=== PATIENT | male | born 2000 | race Two or more races ===

== ENCOUNTER 2024-07-09 11:30 | Outpatient (RCR) | payer MEDICAID, SELFPAY ==
--- NOTE | 2024-06-29 13:50 | PT.OIERPT ---
PT OP Initial Eval Patient Information Outpatient Physical Therapy Treatment Date: 06/29/24 Visit Reasons: RT side sciatica Medical Diagnosis: M54.41 Treatment Dx #1: Back Pain Treatment Dx #2: Hip Pain Start of Care: 06/29/24 Date of Onset: 3 months ago Smoking Status Smoking Status: Never smoker Initial Assessment Subjective: Pt is a 24 y/o male reports of back and bilateral hip pain started ~ 3 months ago. Pt was working on progressing the split maneuver. Pt also [place] as a [employer] [place] Pt notice intermittent pain down the legs R>L. No imaging has been done thus far. Pt has limitation with recreational activities, working out, standing, walking, chores, and lifting. Objective: L/S AROM: all motions are WFL except end range pain into flexion and left rotation Hip PROM: all motions are WFL except IR Hip MMTs: grossly 3+/5 Palpation: TTP and hypomobile L4 facets: increase paraspinal tone L3-L5 regions Special Test (+) Alvino test (+) magaña (+) GURDEEP's Muscle Length: Tight Hs Assessment: Pt demonstrate back pain with hip mobility deficits leading to difficulty with ADLs. 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 Short Term and Penitentiary Goals 1) Increase L/S AROM WNL in 6 wks to be able to perform recreational activities 2) Increase hip mobility WFL in 6 wks to be able to resume work out routine 3) Decrease back pain to 2/10 in 6 wks to be able to walk more than 30 mins 4) Increase core strength WFL in 6 wks to be able to perform lifting activities 5) Indep with HEP Treatment Plan 1) Manual Therapy 2) Therapeutic Activities 3) Therapeutic Exercises 4) Modalities (ice, heat, traction) Frequency and Duration: 2 x wk for 6 wks Certification Dates: 06/29/24 to 09/29/24 Procedure Charges OP PT Eval Mod Complex 30 minutes: Yes
--- NOTE | 2024-07-09 13:05 | PT.ODAYNRPT ---
PT Outpatient Daily Note OP Daily Note Outpatient Physical Therapy Treatment Date: 07/09/24 Visit Reasons: RT side sciatica Subjective: Pt reports LBP and pain in hip flexors sometimes. Objective: Please see flow sheet for ther ex list. Assessment: Pt tolerated interventions with no complaints. Plan: Assess response for treatment, request additional auth. Length of Time (minutes) of Treatment: 30 Minutes Procedure Charges Therapeutic Exercise 30 minutes: Yes
== END 2024-07-27 23:59 | disposition home or self-care (01) ==
LOC: CPTX 11:30
PROVIDERS: PCP Nurse Practitioner Family; Referring Provider Nurse Practitioner Family; Visit Provider Nurse Practitioner Family
DX: M54.41 Lumbago with sciatica, right side (principal); M25.552 Pain in left hip; M25.551 Pain in right hip
CPT/HCPCS: 97110; 97162

== ENCOUNTER 2024-08-21 10:00 | Outpatient (RCR) | payer MEDICAID, SELFPAY ==
--- NOTE | 2024-08-07 10:52 | PT.ODAYNRPT ---
PT Outpatient Daily Note OP Daily Note Outpatient Physical Therapy Treatment Date: 08/07/24 Visit Reasons: Right side Sciatica Subjective: Pt's back is okay. Pt has not experience leg pain lately. Pt still notice his right lower back feeling stiff with rotational movement Objective: Please see flow chart for list of ther ex performed Assessment: taught Hs and hip flexor stretches today to keep hip mobile to decrease compensatory movement in the lower back during work out routine. Pt was given HEP and performed all exercises correctly and safely Plan: Continue with PT Length of Time (minutes) of Treatment: 30 Minutes Procedure Charges Therapeutic Exercise 30 minutes: Yes
--- NOTE | 2024-08-14 12:57 | PT.ODAYNRPT ---
PT Outpatient Daily Note OP Daily Note Outpatient Physical Therapy Treatment Date: 08/14/24 Visit Reasons: Right side Sciatica Subjective: Pt's back feels better. Pt notice hip flexors tightness. Objective: Please see flow chart for list of ther ex performed Assessment: add more core strengthening exercises today. Pt was given HEP and showed hip flexor stretch to continue as part of his work out routine. Pt gave verbal understanding and will continue hip flexor stretching at home. Plan: Continue with PT Length of Time (minutes) of Treatment: 30 Minutes Procedure Charges Therapeutic Exercise 30 minutes: Yes
--- NOTE | 2024-08-18 15:11 | PT.ODAYNRPT ---
PT Outpatient Daily Note OP Daily Note Outpatient Physical Therapy Treatment Date: 08/18/24 Visit Reasons: Right side Sciatica Subjective: Pt reports back is doing better but still has pain on B lateral hip especially when doing a lateral high kick. Objective: Please see flow sheet for ther ex list. Assessment: Pt instructed on hip flexor stretch encouraged to perform for HEP. Plan: Continue with poC.
--- NOTE | 2024-08-21 10:23 | PT.ODAYNRPT ---
PT Outpatient Daily Note OP Daily Note Outpatient Physical Therapy Treatment Date: 08/21/24 Visit Reasons: Right side Sciatica Subjective: Pt mentioned side kicks causing pain. Pt's hip feels tight and back is painful after a few kicks. Objective: Please see flow chart for list of ther ex performed Assessment: instructed patient on glute stretching to help with external rotation and hip flexion during side kick . Pt performed correctly and advised to incorporate as HEP and routine stretching Plan: Continue with PT Length of Time (minutes) of Treatment: 30 Minutes Procedure Charges Therapeutic Exercise 30 minutes: Yes
== END 2024-08-26 23:59 | disposition home or self-care (01) ==
LOC: CPTX 10:00
PROVIDERS: PCP Nurse Practitioner Family; Referring Provider Nurse Practitioner Family; Visit Provider Nurse Practitioner Family
DX: M54.41 Lumbago with sciatica, right side (principal)
CPT/HCPCS: 97110

== ENCOUNTER 2024-09-17 11:30 | Outpatient (RCR) | payer MEDICAID, SELFPAY ==
--- NOTE | 2024-08-28 12:01 | PT.ODAYNRPT ---
PT Outpatient Daily Note OP Daily Note Outpatient Physical Therapy Treatment Date: 08/28/24 Visit Reasons: Right side Sciatica Subjective: Pt's back is better. Pt continues to have right hip pain with sidekicks. Pt is stretching at home which is minimally improving the pain. Objective: Please see flow chart for list of ther ex performed Assessment: instructed patient with IT band stretching and TFL foam roll which did not change much of the right hip. Plan: Continue with PT Length of Time (minutes) of Treatment: 30 Minutes Procedure Charges Therapeutic Exercise 30 minutes: Yes
--- NOTE | 2024-09-01 12:03 | PT.ODAYNRPT ---
PT Outpatient Daily Note OP Daily Note Outpatient Physical Therapy Treatment Date: 09/01/24 Visit Reasons: Right side Sciatica Subjective: Pt's hip feels a little better after last session. Pt feels that foam roll helps. Objective: Please see flow chart for list of ther ex performed Assessment: work on hip disassociation during squatting exercise. After a few reps Pt demonstrate improve form with less lumbar flexion Plan: Continue with PT Length of Time (minutes) of Treatment: 30 Minutes Procedure Charges Therapeutic Exercise 30 minutes: Yes
--- NOTE | 2024-09-04 14:24 | PTNOTE_ITS ---
PT Outpatient Daily Note OP Daily Note Outpatient Physical Therapy Treatment Date: 09/04/24 Visit Reasons: Right side Sciatica Subjective: Pt's back punch a little but overall feeling much better. 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 Worked on bird/dog exercise; patient still has difficulty stabilizing core and hip with exercise modified to quadruped with hip extension. Pt instructed to practice modified/bird dog at home. Plan: Continue with PT Length of Time (minutes) of Treatment: 30 Minutes Procedure Charges Therapeutic Exercise 30 minutes: Yes
--- NOTE | 2024-09-09 11:34 | PT.ODAYNRPT ---
PT Outpatient Daily Note OP Daily Note Outpatient Physical Therapy Treatment Date: 09/09/24 Visit Reasons: Right side Sciatica Subjective: Pt reports hip and back are feeling better, has some pain with certain movements but mild. Objective: Please see flow sheet for ther ex list. Assessment: Progressing interventions as tolerated. Pt demonstrates lateral trunk rotation with lateral plank exercise but corrects post verbal cues. Plan: Continue with POC. Length of Time (minutes) of Treatment: 30 Minutes Procedure Charges Therapeutic Exercise 30 minutes: Yes
--- NOTE | 2024-09-11 09:29 | PT.ODAYNRPT ---
PT Outpatient Daily Note OP Daily Note Outpatient Physical Therapy Treatment Date: 09/11/24 Visit Reasons: Right side Sciatica Subjective: Pt's back is better. No concerns and wants to work on core strength Objective: Please see flow chart for list of ther ex performed Assessment: frequent cues to correct right trunk rotation with bird dog exercise. Added more core strengthening exercises with good tolerance Plan: Continue with PT Length of Time (minutes) of Treatment: 30 Minutes Procedure Charges Therapeutic Exercise 30 minutes: Yes
--- NOTE | 2024-09-17 14:26 | PT.ODS1RPT ---
PT OP Progress/Discharge Note Date of Service: 09/17/24 Progress Note/DC Note Progress Note/Discharge Note: DC Note Patient Information Visit Reasons: Right side Sciatica Medical Diagnosis: M54.41 Treatment Dx #1: Back Pain Service Continue Service or Discharge: Discharge Discharge Date: 09/17/24 Status Subjective: Pt's back is better and does not have much to report. Pt has been able to resume work out, chores, walk, and ADLs with minimal limitation. At this time Pt feels comfortable being release from care with exercises to continue at home. Objective: L/S AROM: all motions are WNL Hip PROM: all motions WNL Hip MMTs: grossly 4-/5 Assessment: Pt demonstrate functional spinal mobility and strength allowing him to resume ADLs with minimal limitation. Pt will no longer benefit from physical therapy due to meeting all set goals. Pt was instructed on HEP last session and educated to continue exercises to maintain overall mobility. Pt performed all exercises safely, thank you for your referrals. Plan: D/C home with HEP and follow up with MD FERMIN Procedure Charges Therapeutic Exercise 30 minutes: Yes
== END 2024-09-26 23:59 | disposition home or self-care (01) ==
LOC: CPTX 11:30
PROVIDERS: PCP Nurse Practitioner Family; Referring Provider Nurse Practitioner Family; Visit Provider Nurse Practitioner Family
DX: M54.41 Lumbago with sciatica, right side (principal); M25.552 Pain in left hip; M25.551 Pain in right hip
CPT/HCPCS: 97110

== ENCOUNTER 2024-12-25 14:00 | Outpatient (RCR) | payer MEDICAID, SELFPAY ==
--- NOTE | 2024-12-02 15:58 | PTNOTE_ITS ---
PT OP Initial Eval Patient Information Outpatient Physical Therapy Treatment Date: 12/02/24 Visit Reasons: Right shoulder pain Medical Diagnosis: M89.8x1 Treatment Dx #1: Right Shoulder Pain Start of Care: 12/02/24 Date of Onset: 1 year ago Smoking Status Smoking Status: Never smoker Initial Assessment Subjective: Pt is a 24 y/o male reports of chronic right shoulder pain (3/10) near the middle of the clavicle. Pt denies of injury or trauma to the shoulder. Pt has limitation with training, lifting, working out, bringing the arm across the body, and performing recreational activities. Objective: Right Shoulder AROM: all motions are WNL Right Shoulder MMTs: grossly 4-/5 Right Scapula MMTs: grossly 4-/5 Assessment: Pt demonstrate functional right shoulder AROM, however, exhibit decrease strength compared to opposite side. Pt will benefit from physical therapy to increase right shoulder stability and strength. Short Term and Skilled Nursing Goals 1) Decrease shoulder pain to 1/10 in 6 wks to be able to perform lifting activities 2) Increase right shoulder MMTs grossly to 4+/5 in 6 wks to be able to resume work out activities 3) Increase right scapula MMTs grossly to 4/5 in 6 wks to be able to perform recreational activities 4) Indep with HEP Treatment Plan 1) Manual Therapy 2) Therapeutic Activities 3) Therapeutic Exercises 4) Modalities (ice, heat) Frequency and Duration: 2 x wk for 6 wks Certification Dates: 12/02/24 to 03/04/25 Procedure Charges OP PT Eval Mod Complex 30 minutes: Yes
--- NOTE | 2024-12-04 08:35 | PT.ODAYNRPT ---
PT Outpatient Daily Note OP Daily Note Outpatient Physical Therapy Treatment Date: 12/04/24 Visit Reasons: Right shoulder pain Subjective: Pt's shoulder feels okay. No new concerns to report. Objective: Please see flow chart for list of ther ex performed Assessment: tolerate exercises with minimal pain Plan: Continue with PT Length of Time (minutes) of Treatment: 30 Minutes Procedure Charges Therapeutic Exercise 30 minutes: Yes
--- NOTE | 2024-12-25 15:30 | PT.ODAYNRPT ---
PT Outpatient Daily Note OP Daily Note Outpatient Physical Therapy Treatment Date: 12/25/24 Visit Reasons: Right shoulder pain Subjective: Pt reports shoulder is doing better, is back to his normal day and workout routines. Pt notices that he does get 5/10 PS with certain movement of shoulder such as rotation. Objective: Please see flow sheet for ther ex list. Assessment: Added laying on foam roller for static stretch, modified shoulder Abduction height during exercise. Plan: Continue with pOC. Length of Time (minutes) of Treatment: 30 Minutes Procedure Charges Therapeutic Exercise 30 minutes: Yes
== END 2024-12-27 23:59 | disposition home or self-care (01) ==
LOC: CPTX 14:00
PROVIDERS: PCP Physician Assistant; Referring Provider Physician Assistant; Visit Provider Physician Assistant
DX: M25.511 Pain in right shoulder (principal); G89.29 Other chronic pain; M89.8X1 Other specified disorders of bone, shoulder
CPT/HCPCS: 97110; 97162

== ENCOUNTER 2025-01-22 09:30 | Outpatient (RCR) | payer MEDICAID, SELFPAY ==
--- NOTE | 2024-12-31 12:59 | PT.ODAYNRPT ---
PT Outpatient Daily Note OP Daily Note Outpatient Physical Therapy Treatment Date: 12/31/24 Visit Reasons: right shoulder pain Subjective: Pt reports R shoulder is doing better. Objective: Please see flow sheet for ther ex list. Assessment: Added SCM stretch, pt completed with good technique post verbal cues for instruction. Plan: Continue with pOC. Length of Time (minutes) of Treatment: 30 Minutes Procedure Charges Therapeutic Exercise 30 minutes: Yes
--- NOTE | 2025-01-22 10:08 | PT.ODAYNRPT ---
PT Outpatient Daily Note OP Daily Note Outpatient Physical Therapy Treatment Date: 01/22/25 Visit Reasons: right shoulder pain Subjective: Pt's shoulder feels better. No new concerns to report. Objective: Please see flow chart for list of ther ex performed Assessment: tolerate exercises with minimal pain; progressing patient to diagonal strengthening pattern Plan: Continue with PT Length of Time (minutes) of Treatment: 30 Minutes Procedure Charges Therapeutic Exercise 30 minutes: Yes
== END 2025-01-26 23:59 | disposition home or self-care (01) ==
LOC: CPTX 09:30
PROVIDERS: PCP Physician Assistant; Referring Provider Physician Assistant; Visit Provider Physician Assistant
DX: M25.511 Pain in right shoulder (principal); M89.8X1 Other specified disorders of bone, shoulder; G89.29 Other chronic pain
CPT/HCPCS: 97110

== ENCOUNTER 2025-02-09 15:30 | Outpatient (RCR) | payer MEDICAID, SELFPAY ==
--- NOTE | 2025-02-01 15:53 | PT.ODAYNRPT ---
PT Outpatient Daily Note OP Daily Note Outpatient Physical Therapy Treatment Date: 02/01/25 Visit Reasons: RT shoulder pain Subjective: Pt's shoulder feels much better. Pt does not have any pain at the moment. Objective: Please see flow chart for list of ther ex performed Assessment: continue to progress with strengthening exercises Plan: Continue with PT Length of Time (minutes) of Treatment: 30 Minutes Procedure Charges Therapeutic Exercise 30 minutes: Yes
--- NOTE | 2025-02-05 13:46 | PT.ODAYNRPT ---
PT Outpatient Daily Note OP Daily Note Outpatient Physical Therapy Treatment Date: 02/05/25 Visit Reasons: RT shoulder pain Subjective: Pt's shoulder is better but no notice some tightness in the back of the shoulder. Pt has been able to continue his routine workout at home. Objective: Please see flow chart for list of ther ex performed Assessment: tolerate exercises with minimal pain; slight fatigue post sidelying shoulder ER with 2# Plan: Continue with PT Length of Time (minutes) of Treatment: 30 Minutes Procedure Charges Therapeutic Exercise 30 minutes: Yes
--- NOTE | 2025-02-09 16:24 | PT.ODAYNRPT ---
PT Outpatient Daily Note OP Daily Note Outpatient Physical Therapy Treatment Date: 02/09/25 Visit Reasons: RT shoulder pain Subjective: Pt reports R shoulder is doing better . Objective: Please see flow sheet for ther ex list. Assessment: Progressing interventions for shoulder strength and stability as tolerated. Plan: Progress as tolerated. Length of Time (minutes) of Treatment: 30 Minutes Procedure Charges Therapeutic Exercise 30 minutes: Yes
--- NOTE | 2025-02-19 12:31 | PT.ODS1RPT ---
PT OP Progress/Discharge Note Date of Service: 02/19/25 Progress Note/DC Note Progress Note/Discharge Note: DC Note Patient Information Visit Reasons: RT shoulder pain Medical Diagnosis: Pt has been seen for 7 visits (eval + 6 visits) inconsistently. Pt last treated 02/09/25 and has multiple no showed appts (12/29, 01/08 02/19). At this time Pt will be d/c from care due to non-compliance per attendance policy. Pt did not meet set goals in therapy; thank you for your referrals
== END 2025-02-26 23:59 | disposition home or self-care (01) ==
LOC: CPTX 15:30
PROVIDERS: PCP Physician Assistant; Referring Provider Physician Assistant; Visit Provider Physician Assistant
DX: M25.511 Pain in right shoulder (principal); G89.29 Other chronic pain; M89.8X1 Other specified disorders of bone, shoulder
CPT/HCPCS: 97110

== ENCOUNTER 2025-03-25 14:16 | Emergency (ER) | payer MEDICAID, SELFPAY ==
[2025-03-25 14:22] VITALS: BP 124/79; PULSE 68; RESP 20; TEMP 36.6; O2SAT 96
--- NOTE | 2025-03-25 14:31 | XR_ITS ---
Examination: CT abdomen with intravenous contrast CT pelvis with intravenous contrast 2-D coronal reconstructions 2-D sagittal reconstructions Date and time of exam: March 25, 2025, 1606 hours INDICATIONS: Generalized abdominal pain with diarrhea today. CTDI: vol (mGy) 4.93 DLP: (mGycm) 267 Technique: Multiple axial sections of the abdomen and pelvis have been obtained. 64 slice high-resolution scanner used. 3 mm axial sections have been obtained, post intravenous injection 30 cc [id number] 2-D sagittal, coronal reconstructions obtained. Low dose protocols were performed. One or more of the following dose reduction techniques were used; automated exposure control, adjustment of the mA and/or KV according to patient size, use of iterative reconstruction technique. Findings: No visualized liver or splenic lesion, mild hepatomegaly Contracted gallbladder No pancreatic or adrenal mass No renal or ureteral calculi, no hydronephrosis Aorta normal size Normal appendix No bowel obstruction No diverticulitis There is mild diffuse thickening of the colonic hernandez Urinary bladder intact No prostatomegaly IMPRESSION: Normal appendix Findings suspicious for nonspecific colitis
[2025-03-25 15:25] LABS: Basophils # (Auto) 0.0 Thou/mm3 (0.0-0.2); Basophils % (Auto) 1 % (0-2.5); Eosinophils # (Auto) 0.3 Thou/mm3 (0.0-0.5); Eosinophils % (Auto) 5 % (0-10); Hematocrit 48.6 % (41.0-53.0); Hemoglobin 16.3 g/dL (13.5-16.0); Immature Granulocytes Auto 0.02 Thou/mm3 (0.00-0.00); Lymphocytes # (Auto) 1.9 Thou/mm3 (1.0-4.8); Lymphocytes % (Auto) 29 % (10-50); Mean Corpuscular HGB Conc 33.5 g/dl (31.0-37.0); Mean Corpuscular Hemoglobin 28.2 pg (25.0-35.0); Mean Corpuscular Volume 84 fL (80-100); Monocytes # (Auto) 0.7 Thou/mm3 (0.0-0.8); Monocytes % (Auto) 11 % (0-12); Neutrophils # (Auto) 3.5 Thou/mm3 (1.8-7.7); Neutrophils % (Auto) 55 % (37-80); Nucleated Red Blood Cell # 0.00 Thou/mm3 (0.00-0.00); Nucleated Red Blood Cell % 0 /100 WBC (0); Platelet Count 184 Thou/mm3 (140-440); RDW Standard Deviation 40.7 fL (35.1-43.9); Red Blood Count 5.78 Miln/mm3 (4.50-5.90); White Blood Count 6.4 Thou/mm3 (3.8-10.6)
[2025-03-25 15:44] LABS: Alanine Aminotransferase 14 U/L (10-49); Albumin, Serum 4.5 gm/dL (3.5-5.0); Albumin/Globulin Ratio 1.7 (1.2-2.2); Alkaline Phosphatase 79 U/L (46-116); Anion Gap 9 (7-16); Aspartate Amino Transferase 18 U/L (0-34); BUN/Creatinine Ratio 9 Ratio (12-20); Bilirubin,Total 0.8 mg/dL (0.3-1.2); Blood Urea Nitrogen 12 mg/dL (9-23); C-Reactive Protein 4.4 mg/dL (0.0-0.9); Calcium 8.6 mg/dL (8.3-10.6); Calcium (Corrected) 8.6 mg/dL (8.5-10.1); Carbon Dioxide 27.3 mMol/L (20.0-31.0); Chloride 105 mMol/L (98-107); Creatinine (Component) 1.4 mg/dL (0.6-1.3); Globulin 2.6 gm/dL (2.3-3.5); Glucose 89 mg/dL (74-106); Lipase 31 U/L (12-53); Osmolality,Calculated 279 (275-295); Potassium 3.9 mMol/L (3.4-5.1); Sed Rate (ESR) 15 mm/hr (0-15); Sodium 141 mMol/L (136-145); Total Protein 7.1 gm/dL (5.7-8.2); eGFR > 60 See Note
[2025-03-25 17:10] LABS: Collection Type, Urine Clean Catch; Squamous Epithelial Cell,Urine 0 /hpf (0-5)
--- NOTE | 2025-03-25 17:11 | PD.EDABDPN ---
ED Abdominal Pain RME/HPI General Chief Complaint: Abdominal Pain Stated complaint: ABD PAIN/DIARRHEA SINCE SATURDAY Time seen by provider: 03/25/25 14:28 Arrival date/time: 03/25/25 14:16 25-year-old male without any significant medical problems presents to the Emergency Department for complaint of lower abdominal pain diarrhea and nausea ongoing since Saturday. Limitations: no limitations Related Data Previous Rx's ?Medication ?Instructions ?Recorded famotidine 20 mg tablet (Pepcid) 20 mg PO BID 30 days #60 tabs 03/25/25 omeprazole 20 mg capsule,delayed 20 mg PO QDAY 14 days #14 caps 03/25/25 release Allergies Allergy/AdvReac Type Severity Reaction Status Date / Time No Known Allergies Allergy Verified 03/25/25 14:19 Review of Systems Review of Systems Systems Reviewed: All systems reviewed, normal except as documented Constitutional Constitutional: Reports system reviewed and no additional complaints, except as documented, Denies fever(s) and Denies headache(s) Eyes Eyes: Reports system reviewed and no additional complaints, except as documented and Denies blurry vision ENT Ears, Nose, Mouth, and Throat: Reports system reviewed and no additional complaints, except as documented, Denies headache(s), Denies nasal congestion and Denies nasal discharge Cardiovascular Cardiovascular: Reports system reviewed and no additional complaints, except as documented, Denies chest pain and Denies dyspnea Respiratory Respiratory: Reports system reviewed and no additional complaints, except as documented, Denies chest congestion, Denies cough and Denies dyspnea Gastrointestinal Gastrointestinal: Reports system reviewed and no additional complaints, except as documented, Reports abdominal pain, Reports loose stools, Reports nausea and Denies vomiting Integumentary/Breasts Skin/Breast: Reports system reviewed and no additional complaints, except as documented and Denies rash Neurologic Neurologic: Reports system reviewed and no additional complaints, except as documented, Reports as per HPI and Denies headache(s) Past Medical History Past Medical History CARDIAC: Negative Cardiac Disorders RESPIRATORY: Negative Asthma GENITOURINARY: Negative Renal Disease ENDOCRINE: Negative Diabetes Mellitus Type 2 HEMATOLOGIC: Negative Sickle Cell Disease Social History SMOKING STATUS: Never smoker ED Exam General Limitations: Present no limitations General appearance: Present alert and in no apparent distress Head Head exam: Present atraumatic Eye Eye exam: Present normal appearance, PERRL and EOMI ENT ENT exam: Present normal exam, normal oropharynx and mucous membranes moist Neck Neck exam: Present normal inspection, full ROM and trachea midline Chest Chest inspection: Present normal inspection and symmetric chest wall rise Respiratory Respiratory exam: Present normal lung sounds bilaterally Cardiovascular Cardiovascular exam: Present regular rate, normal rhythm and normal heart sounds Abdominal Exam Abdominal exam: Present soft and normal bowel sounds; Absent distention, tenderness, guarding, rebound, rigidity, Lucia's sign or tenderness at McBurney's Point Abdominal tenderness: Absent RUQ or RLQ Extremities Exam Extremities exam: Present normal inspection and full ROM Back Exam Back exam: Present normal inspection and full ROM Neurological Exam Neurological exam: Present alert, oriented X3 and CN II-XII intact Psychiatric Psychiatric exam: Present normal affect and normal mood Skin Skin exam: Present warm, dry, intact and normal color Course Quality Measures none Orders Category Date Time Status CT Screening NOW Care 03/25/25 14:32 Completed Insert IV NOW Care 03/25/25 14:[address] abdomen pelvis w con Stat Exams 03/25/25 14:31 Completed CBC Stat Lab 03/25/25 15:00 Completed CRP [C-Reactive Protein] Stat Lab 03/25/25 15:00 Completed Comprehensive Metabolic Panel Stat Lab 03/25/25 15:00 Completed ESR [Sed Rate (ESR)] Stat Lab 03/25/25 15:00 Completed Lipase Stat Lab 03/25/25 15:00 Completed UA, C/S IF [Urinalysis, C/S if Indicated] Stat Lab 03/25/25 16:58 Completed Pantoprazole Inj [Protonix Inj] Med 03/25/25 14:31 Discontinued 40 mg IVP X1 ONE Vital Signs Vital signs: Vital Signs Temperature 97.9 F 03/25/25 14:22 Pulse Rate 68 03/25/25 14:22 Respiratory Rate 20 03/25/25 14:22 Blood Pressure 124/79 03/25/25 14:22 Pulse Oximetry (%) 96 03/25/25 14:22 Oxygen Delivery Method Room Air 03/25/25 14:22 O2 saturation 96% on room air within normal limits Abdominal Pain MDM MDM Narrative MDM Narrative:: 25-year-old male without any significant medical problems presents to the Emergency Department for complaint of lower abdominal pain diarrhea and nausea ongoing since Saturday. Clinically patient is well-appearing does not appear ill or toxic no acute distress Patient medicated here Lab work and imaging obtained no acute emergent findings noted Explained to the patient symptoms persist will have to see a GI specialist for further evaluation Patient discharged home in no distress to follow-up with primary care doctor in the next 24 to 48 hours and for any worsening symptoms to return to the ER immediately Patient data External records reviewed:: [facility] previous records Clinical information provided by:: patient Social determinants that could affect healthcare access:: none Patient has the following chronic illnesses:: NONE How is presenting disease/condition affected by chronic disease/condition?: no chronic disease Evaluation data The following diagnostics were reviewed and interpreted by me:: lab results and radiology exam(s) Lab and/or radiology exams considered but not ordered:: Labs radiology obtained Interpretation Summary: Reviewed by me Medications / Prescriptions Medications or Prescriptions considered but not ordered:: Given Medication administrations:: Medication Administration History Discontinued Medications Pantoprazole Sodium (Pantoprazole Inj 40 Mg Vial) 40 mg IVP X1 ONE Stop: 03/25/25 14:32 Last Admin: 03/25/25 14:55 Dose: 40 mg Documented By: DB Given Consultations Consultation(s) initiated? (list below): No Diagnosis Differential diagnosis abdominal pain: abdominal pain, acute appendicitis, pancreatitis and small bowel obstruction Most likely diagnosis given after review of the tests above:: Abdominal pain Admission Indicated Admission indicated?: not indicated Admission Request Was there a request for admission?: No Disposition Plan Disposition Plan: Discharge Discharge Attestation Discharge Attestation: The patient and all family members were given an opportunity to ask questions and understood the discharge instructions. Discharge instructions specifically effects, indications for sooner follow up or return to the emergency department, and the expected course of current diagnosis. Patient condition: Stable Discharge Plan Plan Patient Disposition: HOME (Self Care) Discharge Disposition comment: stable Prescriptions/Referrals Prescriptions/Med Rec: New famotidine [Pepcid] 20 mg tablet 20 mg PO BID 30 Days Qty: 60 0RF omeprazole 20 mg capsule,delayed release(DR/EC) 20 mg PO QDAY 14 Days Qty: 14 0RF Referrals: Nima Torrez MD [Primary Care Provider, Family Practice] - In 1 week Problem List Clinical Impression: Colitis Patient/Caregiver Discharge Instructions Additional Instructions: Please follow up with your primary care doctor in the next 24-48hrs for any worsening symptoms return here immediately If symptoms persist or worsen please follow-up with GI specialist Print Language: Grenadian Stand Alone Forms: Tori Award Info., Work/School Release, Patient Portal Info Letter PA/HOSPITAL STAFF PHARMACIST Supervising Physician PA/HOSPITAL STAFF PHARMACIST Supervising Physician: dr daley
[2025-03-25 17:25] LABS: Bilirubin,Urine Negative (Negative); Blood,Urine Negative (Negative); Clarity,Urine Clear (Clear/Hazy); Color,Urine Yellow (Lt Yel-Yel); Culture Indicated,Urine Not Indicated; Glucose, Urine Negative (Negative); Ketones,Urine Negative (Negative); Leukocyte Esterase,Urine Negative (Negative); Nitrite,Urine Negative (Negative); PH,Urine 6.0 (5.0-7.0); Protein,Urine Negative (Neg - Trace); RBC,Urine 4 /hpf (0-3); Specific Gravity,Urine 1.041 (1.001-1.035); Urobilinogen,Urine Negative mg/dL (0.0-1.0); WBC,Urine < 1 /hpf (0-5)
== END 2025-03-25 17:17 | disposition home or self-care (01) ==
PROVIDERS: Nurse Practitioner Primary Care; Emergency Provider Family Medicine; PCP Family Medicine
DX: K52.9 Noninfective gastroenteritis and colitis, unspecified (principal)
CPT/HCPCS: 36415; 74177; 80053; 81001; 83690; 85025; 85652; 86140; 96374; 99283; A4649; J2470; Q9967